=== PATIENT | male | born 1990 | race Caucasian/White ===

== ENCOUNTER 2017-06-30 12:23 | Emergency (ER) | payer SELFPAY ==
[2017-06-30] MEDS: IBUPROFEN 800 MG TAB PO (13:10)
[2017-06-30] MEDS: OSELTAMIVIR 75 MG CAP PO (14:00)
== END 2017-06-30 14:11 | disposition home or self-care (01) ==
LOC: E/R 12:23
DX: J10.1 Influenza due to other identified influenza virus with other respiratory manifestations (principal); R00.0 Tachycardia, unspecified
CPT/HCPCS: 71045; 87400; 99284-25